=== PATIENT | female | born 1955 ===

== ENCOUNTER 2018-10-29 09:42 | Day surgery (SDC) | payer MEDICAID ==
[2018-10-28 13:08] VITALS: BMI 30.4
[2018-10-29] MEDS ORDERED: HYDROmorphone 0.5 mg/0.5 ml ISec IVP PRN (13:03)
[2018-10-29] MEDS ORDERED: Propofol 10 mg/ml Inj (20 ML) ONE (13:17)
[2018-10-29] MEDS ORDERED: Midazolam 2 MG/2 ML VIAL ONE (13:17)
[2018-10-29] MEDS ORDERED: cefTRIAXone 1 gm 1 GM/100 ML BAG IVPB ONE (13:23)
[2018-10-29] MEDS ORDERED: Iohexol 240 (50 ml) ONE (13:24)
[2018-10-29 15:46] VITALS: RESP 18; TEMP 98; O2SAT 100
[2018-10-29 16:01] VITALS: BP 136/73; PULSE 77
--- NOTE | 2018-10-29 17:08 | RAD ---
Date of service: 10/29/2018 PROCEDURE: Intraoperative fluoroscopy HISTORY: LEFT KIDNEY STONE COMPARISON: Not available TECHNIQUE: Intraoperative fluoroscopy was provided for left ureteral stent placement. Total time of fluoroscopy was 18.1 sec. Cumulative dose was 0.84985 mGy meter squared. FINDINGS: Three fluoroscopic spot films are submitted. IMPRESSION: Fluoroscopy provided
--- NOTE | 2018-11-13 14:02 | OP ---
PROCEDURE DATE: 10/29/2018 PREOPERATIVE DIAGNOSIS: Left ureteral calculus. POSTOPERATIVE DIAGNOSIS: Left ureteral calculus. PROCEDURE: Cystoscopy with left double-J stent placement under general anesthesia. DESCRIPTION OF PROCEDURE: The patient was placed on the operating room table in dorsal lithotomy position. The area of the groin was draped and prepped. Using a #21 cystoscope, I entered into the bladder atraumatically. At this time, I identified the left ureteral orifice and placed a sensory wire fluoroscopically to the level of the left renal pelvis. Following this, over that existing guidewire, then I placed a [id number] multilength double-J stent again fluoroscopically into good position. Once this was done I removed the sensor wire, the stent took a nice coil in the proximal and distal end. X-rays were taken. Then, the patient was taken from the operating room in good condition. There was no significant blood loss. Blanca Alcala MD
== END 2018-10-29 16:05 | disposition home or self-care (01) ==
LOC: C.SDS 09:42
PROVIDERS: ATTEND Urology
DX: N20.2 Calculus of kidney with calculus of ureter (principal); N20.0 Calculus of kidney; N23 Unspecified renal colic
CPT/HCPCS: 52332; 82365; 88300; C1725; C1769; J0696